=== PATIENT | male | born 1970 | race African-American/Black ===

== ENCOUNTER 2022-06-04 16:17 | Emergency (ER) | payer MEDICAID ==
[~2022-06-04] VITALS: Ht 182.9 cm; Wt 131.5 kg
[2022-06-04 16:27] VITALS: BP 145/75
[2022-06-04] MEDS ORDERED: KETOROLAC TROMETHAMINE INJ 60 MG/2 ML VIAL IM ONE (17:00)
[2022-06-04] MEDS ORDERED: HYDROCODONE/APAP 5/325MG TABLET PO ONE (17:00)
[2022-06-04] MEDS ORDERED: AMOX/CLAVULANATE 875 MG TABLET PO ONE (17:00)
[2022-06-04] MEDS ORDERED: TDAP [DIPH/PERTUSSIS/TET] 0.5 ML VIAL IM ONE ×2 (17:00→17:28)
[2022-06-04] MEDS ORDERED: HYDROCODONE/APAP 5/325MG TABLET ONE (17:27)
[2022-06-04] MEDS ORDERED: AMOX/CLAVULANATE 875 MG TABLET ONE (17:27)
[2022-06-04] MEDS ORDERED: KETOROLAC TROMETHAMINE INJ 30 MG/ML VIAL ONE (17:27)
[2022-06-04] MEDS ORDERED: HYDR-4209 PO (18:02)
[2022-06-04] MEDS ORDERED: AMOX-430 PO (18:02)
--- NOTE | 2022-06-04 18:13 | NUR ---
Patient discharged to home in stable condition. Written and verbal after care instructions given. Patient verbalizes understanding of instruction.
== END 2022-06-04 18:13 | disposition home or self-care (01) ==
LOC: ER 16:19
DX: S62.232A Other displaced fracture of base of first metacarpal bone, left hand, initial encounter for closed fracture (principal); M20.022 Boutonniere deformity of left finger(s); W50.3XXA Accidental bite by another person, initial encounter; Y93.89 Activity, other specified; Y92.89 Other specified places as the place of occurrence of the external cause; Y99.8 Other external cause status
CPT/HCPCS: 99284; 29125; 90471; 90715; 73130; 96372; J1885

== ENCOUNTER 2022-06-07 16:44 | Emergency (ER) | payer MEDICAID ==
[~2022-06-07] VITALS: Ht 182.9 cm; Wt 131.5 kg
[~2022-06-07 16:44] MED LIST: AMOX-430 PO; HYDR-4209 PO
[2022-06-07 16:52] VITALS: BP 135/88
--- NOTE | 2022-06-07 17:00 | NUR ---
"i just need medication refill for pain"
[2022-06-07] MEDS ORDERED: HYDR-4303 PO (17:10)
--- NOTE | 2022-06-07 17:16 | NUR ---
Patient discharged to home in stable condition. Written and verbal after care instructions given. Patient verbalizes understanding of instruction.
== END 2022-06-07 17:16 | disposition home or self-care (01) ==
LOC: ER 16:45
DX: S62.202D Unspecified fracture of first metacarpal bone, left hand, subsequent encounter for fracture with routine healing (principal); L02.512 Cutaneous abscess of left hand; M79.642 Pain in left hand; Y04.1XXD Assault by human bite, subsequent encounter